=== PATIENT | female | born 1970 | race Caucasian/White ===

== ENCOUNTER 2016-09-19 01:30 | Emergency (ER) | payer OTHER ==
[2016-09-19] MEDS ORDERED: HYDROcodone/APAP 5/325 TABLET ONE (02:51)
[2016-09-19] MEDS ORDERED: KETOROLAC 30 MG/1 ML ONE (03:54)
== END 2016-09-19 07:21 | disposition home or self-care (01) ==
LOC: ED 04:10
DX: M25.512 Pain in left shoulder (principal)
CPT/HCPCS: 99284

== ENCOUNTER 2018-02-07 21:04 | Emergency (ER) | payer OTHER ==
[~2018-02-07] VITALS: Ht 165.1 cm; Wt 102.0 kg
[2018-02-07] MEDS ORDERED: ONDANSETRON ODT 4 MG ONE (21:53)
[2018-02-07] MEDS ORDERED: ONDANSETRON ODT 4 MG PO ONE (22:00)
[2018-02-07 22:12] LABS: MEAN CORPUSCULAR HEMOGLOBIN 35.3 pg (27.0-34.8); MEAN CORPUSCULAR HGB CONC 33.5 g/dL (32.4-35.8); MEAN CORPUSCULAR VOLUME 105.3 fL (80-100); MEAN PLATELET VOLUME 9.4 fL (7.4-10.4); PLATELET COUNT 262 x10^3/uL (130-400); RED CELL DISTRIBUTION WIDTH 15.5 % (9.6-15.2)
[2018-02-07 22:25] LABS: ALBUMIN 2.3 g/dL (3.4-5.0); ANION GAP 7 mmol/L (5-15); CALCIUM 8.8 mg/dL (8.5-10.1); CHLORIDE 102 mmol/L (98-107); CREATININE 1.04 mg/dL (0.55-1.02)
[2018-02-07 22:29] LABS: TROPONIN I < 0.015 ng/mL (0.000-0.045)
[2018-02-07 22:35] LABS: BASOPHILS % (AUTO) 0 % (0-1); EOSINOPHILS % (AUTO) 0 % (1-7); LYMPHOCYTES # (AUTO) 0.73 x10^3/uL (1-3.4); LYMPHOCYTES % (AUTO) 4 % (22-44); MD SCAN; MONOCYTES # (AUTO) 1.24 x10^3/uL (0.2-0.8); MONOCYTES % (AUTO) 6 % (2-9); NEUTROPHILS # (AUTO) 17.45 x10^3/uL (1.8-6.8); NEUTROPHILS % (AUTO) 90 % (42-75)
[2018-02-07 22:36] LABS: CULTURE INDICATED? YES; MICROSCOPIC INDICATED
[2018-02-07] MEDS ORDERED: AZITHROMYCIN 500 MG in SODIUM CHLORIDE 0.9% 250 ML IV ONE (23:00)
[2018-02-07] MEDS ORDERED: SODIUM CHLORIDE 0.9% 1,000ML IVBOLUS ONE (23:00)
[2018-02-07] MEDS ORDERED: CEFTRIAXONE 1,000 MG in SODIUM CHLORIDE 0.9% 50 ML IVPB ONE (23:00)
[2018-02-07] MEDS ORDERED: RANI-276 PO (23:12)
[2018-02-07] MEDS ORDERED: ASPI-621 PO (23:12)
[2018-02-07] MEDS ORDERED: CEFTRIAXONE PMX 1GM/50ML 50 ML ONE (23:19)
[2018-02-07] MEDS ORDERED: MORPHINE SULFATE 4 MG/ML, 1ML ONE (23:57)
[2018-02-08] MEDS ORDERED: MORPHINE SULFATE 4 MG/ML, 1ML IVPush PRN
[2018-02-08 01:08] VITALS: BP 104/74
== END 2018-02-08 01:15 | disposition short-term general hospital (02) ==
LOC: ED 21:32
DX: R65.10 Systemic inflammatory response syndrome (SIRS) of non-infectious origin without acute organ dysfunction (principal); J15.9 Unspecified bacterial pneumonia; N30.90 Cystitis, unspecified without hematuria; E87.6 Hypokalemia; D72.829 Elevated white blood cell count, unspecified; K21.9 Gastro-esophageal reflux disease without esophagitis; R00.0 Tachycardia, unspecified; Z90.49 Acquired absence of other specified parts of digestive tract
CPT/HCPCS: 36415; 71045; 80048; 81001; 82040; 83605; 84145; 84484; 85025; 87040; 87077; 87086; 93005; 96365; 96368; 96375; 99285; J0456; J0696; J7030; J7050; Q0162; 87186

== ENCOUNTER 2019-07-06 02:07 | Emergency (ER) | payer SELFPAY ==
[~2019-07-06] VITALS: Ht 157.5 cm; Wt 100.0 kg
[~2019-07-06 02:07] MED LIST: ASPI81TA45 PO; RANI-460 PO
[2019-07-06 02:19] VITALS: BP 121/75
--- NOTE | 2019-07-06 02:59 | NUR ---
PT IN ROOM 3, DECLINING ANY INTERVENTION AT THIS TIME, TO SEE
[2019-07-06] MEDS ORDERED: LORazepam 1MG TABLET PO ONE (03:00)
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
== END 2019-07-06 03:07 | disposition left against medical advice (07) ==
LOC: ED 02:30
DX: F41.1 Generalized anxiety disorder (principal); K21.9 Gastro-esophageal reflux disease without esophagitis; F32.9 Major depressive disorder, single episode, unspecified; Z90.49 Acquired absence of other specified parts of digestive tract
CPT/HCPCS: 99283